=== PATIENT | female | born 1965 | race Caucasian/White ===

== ENCOUNTER 2017-03-05 18:57 | Emergency (ER) | payer MEDICAID ==
[2017-03-05 19:02] VITALS: TEMP 98.2; O2SAT 97
[2017-03-05] MEDS ORDERED: LORazepam 1 MG TAB PO ONE (19:26)
[2017-03-05] MEDS ORDERED: CHLORDIAZEPOXIDE 25MG PREPK#6 BTL TAKEHOME ONE (19:29)
--- NOTE | 2017-03-05 19:29 | EDPHY ---
H & P Stated Complaint: sent from [facility] to detox Time Seen by Provider: 03/05/17 19:20 HPI/ROS: CHIEF COMPLAINT: Sent to ED for Librium from [facility] HISTORY OF PRESENT ILLNESS: The patient is sent to the emergency department for Librium from the [facility]. She has a history of alcoholism and recently relapsed. She presents today with symptoms of mild alcohol withdrawal with slight restlessness nausea and mild tremor. The patient denies any suicidal or homicidal ideation. The patient denies vomiting or hematemesis. The patient has no acute medical complaints. REVIEW OF SYSTEMS: A comprehensive 10 point review of systems is otherwise negative aside from elements mentioned in the history of present illness. Source: Patient Exam Limitations: No limitations - Personal History LMP (Females 10-55): 1-7 Days Ago Current Tetanus/Diphtheria Vaccine: Yes Tetanus Vaccine Date: 2011 - Medical/Surgical History Hx Asthma: No Hx Chronic Respiratory Disease: No Hx Diabetes: No Hx Cardiac Disease: No Hx Renal Disease: No Hx Cirrhosis: No Hx Alcoholism: Yes Hx HIV/AIDS: No Hx Splenectomy or Spleen Trauma: No Other PMH: spinal stenosis, bulging discs, arthritis, alcoholic-15yrs - Social History Smoking Status: Current every day smoker - Physical Exam Exam: General Appearance: Alert, no distress Eyes: Pupils equal and round no pallor or injection ENT, Mouth: Mucous membranes moist Respiratory: There are no retractions, lungs are clear to auscultation Cardiovascular: Regular rate and rhythm Gastrointestinal: Abdomen is soft and nontender, no masses, bowel sounds normal Neurological: Alert and oriented x4, 5/5 strength noted all 4 extremity, slight resting tremor Skin: Warm and dry, no rashes Musculoskeletal: Neck is supple nontender Extremities: symmetrical, full range of motion Constitutional: Initial Vital Signs Temperature (C) 36.8 C 03/05/17 18:58 Heart Rate 113 H 03/05/17 18:58 Respiratory Rate 18 03/05/17 18:58 Blood Pressure 138/87 H 03/05/17 18:58 O2 Sat (%) 97 03/05/17 18:58 Allergies/Adverse Reactions: No Known Allergies Allergy (Verified 11/04/15 20:03) Home Medications: Medication Instructions Recorded Sertraline HCl 150 DAILY 11/15/15 Wellbutrin 150mg SR (*) 150 DAILY 03/05/17 Medical Decision Making ED Course/Re-evaluation: The patient presents to the emergency department with symptoms of mild alcohol withdrawal. She was given 1 mg dose of oral Ativan. She is otherwise well- appearing. The [facility] with [facility] prep[facility] for Librium. The patient has no evidence of moderate or severe alcohol withdrawal. She is appropriate for outpatient management at the [facility] detox facility. Differential Diagnosis: Differential diagnosis considered includes alcohol withdrawal, dehydration, metabolic abnormality, alcohol withdrawal seizure Departure - Departure Disposition: Home, Routine, Self-Care Clinical Impression: Alcohol withdrawal Qualifiers: Complication of substance-induced condition: uncomplicated Qualified Code(s): F10.230 - Alcohol dependence with withdrawal, uncomplicated Condition: Good Instructions: Alcohol Withdrawal (ED) Additional Instructions: 1. Please follow up with the [facility]. You have been given a prepack for Librium. 2. Please return to the ED for severe pain, intractable vomiting or other concerns. Referrals: Nieves Bardales NP [Primary Care Provider] - As per Instructions
[2017-03-05 19:57] VITALS: BP 135/95; PULSE 90; RESP 16
== END 2017-03-05 21:35 | disposition home or self-care (01) ==
DX: F10.230 Alcohol dependence with withdrawal, uncomplicated (principal); F17.200 Nicotine dependence, unspecified, uncomplicated

== ENCOUNTER 2017-03-10 17:28 | Emergency (ER) | payer MEDICAID ==
[2017-03-10 17:36] VITALS: TEMP 98.1; O2SAT 96
[2017-03-10] MEDS ORDERED: LORazepam 1 MG TAB PO ONE ×2 (18:10→19:50)
[2017-03-10] MEDS ORDERED: NS 1,000 ML IV ONE (18:10)
--- NOTE | 2017-03-10 18:13 | EDPHY ---
H & P Stated Complaint: detox/etoh last drink at noon/tremors/sob/ n/v HPI/ROS: CHIEF COMPLAINT: Alcohol detox request HISTORY OF PRESENT ILLNESS: Patient admits to being a binge alcoholic. She says she drinks for 2-3 days at a time every 3-4 weeks. Most recently, she has been drinking vodka for the past 3 days. She has had between 1.75 in 2 L. Per last intake of alcohol was 3.5 hours ago. She now is asking for detox. She wants to go to the [facility] for Librium detox. She has done this in the past but did not complete most recently. She says she has felt her heart racing but she has no chest pain. She has no shortness of breath. No fever, chills, nausea vomiting. She has no thoughts of self-harm and is here on her own free will asking for help. No other associated complaints or modifying factors. REVIEW OF SYSTEMS: Ten systems reviewed and are negative unless otherwise noted in the HPI PERTINENT MEDICAL HISTORY: Alcoholic, depression and anxiety EXAMINATION General Appearance: Alert, no distress. Resting comfortably. Head: normocephalic, atraumatic Eyes: Pupils equal and round, no conjunctival pallor or injection. EOMs intact. ENT, Mouth: Mucous membranes moist. Uvula midline. Neck: Normal inspection, supple, non-tender Respiratory: Lungs are clear to auscultation. No wheezing, rhonchi or crackles. Cardiovascular: Tachycardic at 112 beats per minute. Regular rhythm. No murmur. Pulses intact distally. Gastrointestinal: Abdomen is soft and nontender Back: non-tender, no bony abnormalities Neurological: GCS 15. A&O, nonfocal, normal gait. Strength symmetric in all 4 limbs. No dysmetria. No pronator drift. Normal mental status Skin: Warm and dry, no rash Extremities: Nontender, no pedal edema Psychiatric: Mood and affect normal DIFFERENTIAL DIAGNOSES: Including but not limited to chronic alcoholism, alcohol abuse, alcohol dependency, alcohol withdrawal, detox MDM: 6:10 p.m. Patient is here requesting alcohol detox. She has had 1.75 L over the past 3 days. Her last intake of alcohol was 3-4 hours ago. She says that she binges once a month for 2-3 days at a time. This is typical for her. She has no suicidal ideation. She is awake and alert in no acute distress. She is afebrile and not hypertensive. She does not exhibit any signs of delirium tremens, nor do her vital signs suggest that. Provide IV fluid resuscitation, p.o. Ativan and provide Librium taper for her to take at the [facility]. She is comfortable with this plan. She will be discharged and taken to the [facility] by cab. SUPERVISION: This patient was independently evaluated without direct examination by the attending physician. Case was discussed with attending physician. Source: Patient, Old records Exam Limitations: No limitations - Personal History LMP (Females 10-55): 15-21 Days Ago Current Tetanus/Diphtheria Vaccine: Yes Tetanus Vaccine Date: 2011 - Medical/Surgical History Hx Asthma: No Hx Chronic Respiratory Disease: No Hx Diabetes: No Hx Cardiac Disease: No Hx Renal Disease: No Hx Cirrhosis: No Hx Alcoholism: Yes Hx HIV/AIDS: No Hx Splenectomy or Spleen Trauma: No Other PMH: spinal stenosis, bulging discs, arthritis, alcoholic-15yrs - Social History Smoking Status: Former smoker Constitutional: Initial Vital Signs Temperature (C) 98.1 F 03/10/17 17:33 Heart Rate 118 H 03/10/17 17:33 Respiratory Rate 20 03/10/17 17:33 Blood Pressure 115/75 03/10/17 17:33 O2 Sat (%) 96 03/10/17 17:33 O2 Delivery Mode Room Air Allergies/Adverse Reactions: No Known Allergies Allergy (Verified 03/10/17 17:32) Home Medications: Medication Instructions Recorded Sertraline HCl 150 DAILY 11/15/15 Wellbutrin 150mg SR (*) 150 DAILY 03/05/17 Departure - Departure Disposition: Home, Routine, Self-Care Clinical Impression: Alcohol dependence Qualifiers: Substance use status: uncomplicated Qualified Code(s): F10.20 - Alcohol dependence, uncomplicated Condition: Good Instructions: Chlordiazepoxide (By mouth), Alcohol Intoxication (ED), Abuse of Alcohol (ED), Alcohol Withdrawal (ED) Additional Instructions: Librium taper as instructed per [facility] protocol. Return to ER for any changes in symptoms or if he stopped taking the medication or start drinking alcohol. Do not take the medication with a alcohol or drink any alcohol 48 hours after taking the Librium. Referrals: [facility] [Other] - As per Instructions
[2017-03-10] MEDS ORDERED: CHLORDIAZEPOXIDE 25MG PREPK#6 BTL TAKEHOME ONE (18:15)
[2017-03-10] MEDS ORDERED: LORazepam 1 MG TAB ONE (19:52)
[2017-03-10 19:58] VITALS: BP 139/89; PULSE 89; RESP 18
== END 2017-03-10 19:57 | disposition home or self-care (01) ==
DX: F10.20 Alcohol dependence, uncomplicated (principal); Z87.891 Personal history of nicotine dependence

== ENCOUNTER 2018-04-01 20:14 | Emergency (ER) | payer MEDICAID ==
[2018-04-01 20:38] LABS: PLATELET COUNT 284 10^3/uL (150-400)
--- NOTE | 2018-04-01 23:57 | EDPHY ---
H & P Smoking Status: Former smoker Time Seen by Provider: 04/01/18 20:23 HPI/ROS: CHIEF COMPLAINT: M1 hold HISTORY OF PRESENT ILLNESS: 53-year-old female presents to the emergency department with [facility] Department on M1 hold. The patient made suicidal statements to her daughter. The patient admits to drinking alcohol this evening. She was recently in [facility] after a DUI. She lost her in January of 2018. She states that she does not feel suicidal now. She denies pain in her chest or difficulty breathing. Denies abdominal pain. Denies homicidal ideation. Denies auditory visual hallucinations. Denies any reported trauma. REVIEW OF SYSTEMS: Constitutional: No fever, no chills. Eyes: No double or blurry vision. ENT: No sore throat. Respiratory: No cough, no shortness of breath. Cardiac: No chest pain. Gastrointestinal: No abdominal pain, vomiting or diarrhea. Genitourinary: No dysuria. Musculoskeletal: No neck or back pain. Skin: No rashes. Neurological: No headache. (Lucinda Lynn) Past Medical/Surgical History: Depression (Lucinda Lynn) Social History: (Lucinda Lynn) Physical Exam: General Appearance: Alert, no distress. Smells strongly of alcohol. No visible signs of trauma to her head. Eyes: Pupils equal and round. Extraocular motions are all intact. ENT: Mouth: Mucous membranes moist. Respiratory: No wheezing, rhonchi, or rales, lungs are clear to auscultation. Cardiovascular: Regular rate and rhythm. Gastrointestinal: Abdomen is soft and nontender, no masses, no rebound or guarding, bowel sounds normal. Neurological: Alert and oriented x 3, cranial nerves II through XII grossly intact Skin: Warm and dry, no rashes. Musculoskeletal: Nontender to palpate along the cervical, thoracic or lumbar spine. Neck is supple. Extremities: Full range of motion and no peripheral edema. Psychiatric: Patient is oriented X 3, there is no agitation. (Lucinda Lynn) Constitutional: Initial Vital Signs Temperature (C) 37.1 C 04/01/18 20:33 Heart Rate 104 H 04/01/18 20:33 Respiratory Rate 17 04/01/18 20:33 Blood Pressure 130/91 H 04/01/18 20:33 O2 Sat (%) 95 04/01/18 20:33 O2 Delivery Mode Room Air Allergies/Adverse Reactions: No Known Allergies Allergy (Verified 03/10/17 17:32) Home Medications: Medication Instructions Recorded Sertraline HCl 150 DAILY 11/15/15 Wellbutrin 150mg SR (*) 150 DAILY 03/05/17 Medical Decision Making ED Course/Re-evaluation: 53-year-old female presents to the emergency department on M1 hold. She is feeling depressed. She made suicidal statements to her daughter. Her daughter called the police and she was transported to the emergency department for evaluation. The patient is acutely intoxicated with alcohol. When she is clinically sober, she will be evaluated by mental health. (Lucinda Lynn) I took over care of this patient at 7:00 a.m.. This patient is on an M1 hold for alcohol intoxication and suicidal thoughts. She is awaiting behavioral health evaluation. 2:45 p.m., there have been no issues during my shift. The patient has been seen and evaluated by [facility]. [facility] is currently discussing the patient's case with the on-call psychiatrist. Care will be turned over to Dr. Jhony Thompson at 3:00 p.m.. (Kvng Saldana) Differential Diagnosis: Depression including functional and major depression, situational depression, medication side effect, drugs and alcohol abuse. (Lucinda Lynn) Other Provider: 0100 care assumed by me from ASIM Lynn pending sober mental health evaluation. 0700 patient has been sleeping overnight. Patient signed out to Dr. Saldana pending sober evaluation. I have no issues during my care this patient overnight. (Gilbert Rogers) I assumed care of the patient at 3:00 p.m. Pending psychiatric disposition. Updated 5:11 p.m.: The patient has been accepted for inpatient psychiatric hospitalization at [facility] by Dr. Banegas. I have filled out the EMTALA transfer form. (Salvador Thompson) Care Turn Over: Care will be turned over to Dr. Elia Rogers for disposition and plan. (Lucinda Lynn) - Data Points Laboratory Results: Laboratory Results 04/01/18 20:30 04/01/18 20:30 Medications Given: Discontinued Medications Lorazepam (Ativan) 1 mg PO EDNOW ONE Stop: 04/02/18 16:35 Last Admin: 04/02/18 16:41 Dose: 1 mg Departure - Departure Disposition: Other Psych, Not [facility] Clinical Impression: Depression, Suicidal ideation Alcohol intoxication Qualifiers: Complication of substance-induced condition: uncomplicated Qualified Code(s): F10.920 - Alcohol use, unspecified with intoxication, uncomplicated Condition: Fair Referrals: Patient,NotPresent [Unknown] - As per Instructions
[2018-04-02] MEDS ORDERED: LORazepam 1 MG TAB PO ONE (16:34)
[2018-04-02 20:03] VITALS: BP 144/80
== END 2018-04-02 19:53 ==
LOC: EEVIPCON 20:14
DX: R45.851 Suicidal ideations (principal); F32.9 Major depressive disorder, single episode, unspecified; Z87.891 Personal history of nicotine dependence
CPT/HCPCS: 80305; G0480

== ENCOUNTER 2018-04-13 00:46 | Emergency (ER) | payer MEDICAID ==
--- NOTE | 2018-04-13 00:55 | EDPHY ---
H & P Stated Complaint: Alcohol intoxication, medical clearance Time Seen by Provider: 04/13/18 00:56 HPI/ROS: HPI: This is a 53-year-old female who presents with Chief Complaint: Medical clearance, alcohol intoxication Location: psych Quality: Alcohol intoxication Duration: Today Signs and Symptoms: no fever, no nausea, no vomiting, no hematemesis, no blood in stool, no abdominal bloating, no diarrhea, no back pain, no urinary symptoms , no vaginal bleeding/discharge, no indigestion, no chest pain, no shortness of breath Timing: Chronic Severity: Moderate Context: Patient has a history of binge alcohol drinking. She reports that she drinks for 2-3 days a time every 3-4 weeks for the last 15 years. She most recently has been drinking vodka UA between 1.75 and 2 L. She is currently in the emergency room accompanied by police as she is under arrest. She told him that she had not eaten any food in the last 3 days. Further questioning patient reports that when she drinks and binges that she does not have any appetite. Patient denies any actual nausea, vomiting, abdominal pain, hematemesis, blood in stool. She has no history of alcohol withdrawal seizures. She has no thoughts of self-harm or harming others. Patient is very upset as she does not want to go to long-term. Modifying Factors: None Comment: ROS: see HPI Constitutional: No fever, no chills, no weight loss Eyes: No blurred vision Respiratory: No shortness of breath, no cough Cardiovascular: No chest pain, no palpitations Gastrointestinal: No nausea, no vomiting, no diarrhea, no hematemesis, no blood in stool Genitourinary: No dysuria, no blood in urine Extremities: No myalgias, no edema Neurologic: No weakness, no numbness Skin: No rashes, no petechiae Hematologic: No bruising, no bleeding MEDICAL/SURGICAL/SOCIAL HISTORY: Medical history: spinal stenosis, bulging discs, arthritis, alcoholic-15yrs Surgical history: Denies Social history: here Family history noncontributory. CONSTITUTIONAL: awake and alert, no obvious distress HEENT: Atraumatic and normocephalic, PERRL, EOMI. Nares patent; no rhinorrhea; no nasal mucosal edema. Tympanic membranes clear. Oropharynx clear, no exudate and moist pink mucosa. Airway patent. No lymphadenopathy. No meningismus. Cardiovascular: Normal S1/S2, regular rate, regular rhythm, without murmur rub or gallop. PULMONARY/CHEST: Symmetrical and nontender. Clear to auscultation bilaterally. Good air movement. No accessory muscle usage. ABDOMEN: Soft, nondistended, nontender, no rebound, no guarding, no peritoneal signs, no masses or organomegaly. No CVAT. EXTREMITIES: 2/2 pulses, strength 5/5, no deformities, no clubbing, no cyanosis or edema. NEUROLOGICAL: no focal neuro deficits. GCS 15. SKIN: Warm and dry, no erythema. no rash. Good capillary refill. Source: Police, Old records Exam Limitations: Clinical condition - Personal History Tetanus Vaccine Date: 2011 - Medical/Surgical History Hx Asthma: No Hx Chronic Respiratory Disease: No Hx Diabetes: No Hx Cardiac Disease: No Hx Renal Disease: No Hx Cirrhosis: No Hx Alcoholism: Yes Hx HIV/AIDS: No Hx Splenectomy or Spleen Trauma: No Other PMH: spinal stenosis, bulging discs, arthritis, alcoholic-15yrs - Social History Smoking Status: Former smoker Allergies/Adverse Reactions: No Known Allergies Allergy (Verified 04/13/18 00:51) Home Medications: Medication Instructions Recorded Sertraline HCl 150 DAILY 11/15/15 Wellbutrin 150mg SR (*) 150 DAILY 03/05/17 Medical Decision Making ED Course/Re-evaluation: Vital signs reviewed and stable upon arrival. Abdomen soft and nontender. Doubt surgical process. Does not meet M1 hold or Detainer criteria. Patient will be discharged to the long-term. This patient was seen under the supervision of my secondary supervising physician. I evaluated care for this patient independently. Discussed this patient with Dr. Espinal who did not see the patient. Differential Diagnosis: Differential diagnosis includes but is not limited to chronic alcoholism, alcohol bingeing, alcoholic gastritis, gastroenteritis, anorexia. Departure - Departure Disposition: Law Enforcement/Court/[facility] Clinical Impression: Alcohol intoxication Qualifiers: Complication of substance-induced condition: uncomplicated Qualified Code(s): F10.920 - Alcohol use, unspecified with intoxication, uncomplicated Condition: Good Instructions: Alcohol Withdrawal (ED), Alcohol Dependence (ED) Additional Instructions: Patient is Medically Cleared to be discharged to long-term. See [facility] for follow-up instructions and prescriptions. Referrals: [facility],. [Clinic] - Follow Up Only If Needed
[2018-04-13 01:01] VITALS: BP 123/74
== END 2018-04-13 01:01 ==
DX: F10.920 Alcohol use, unspecified with intoxication, uncomplicated (principal); Z87.891 Personal history of nicotine dependence

== ENCOUNTER 2018-05-03 12:15 | Emergency (ER) | payer MEDICAID, OTHER ==
[2018-05-03 12:22] VITALS: BP 125/81
--- NOTE | 2018-05-03 12:50 | EDPHY ---
H & P Time Seen by Provider: 05/03/18 12:33 HPI/ROS: CHIEF COMPLAINT: [facility] hold HISTORY OF PRESENT ILLNESS: Patient is a alcoholic you binge drinks and has been going for 2 weeks on vodka. She was speaking on the phone to her sister today and her sister called EMS who went to the residence. The sister lives in the state of [place]. There was no report of suicidal ideation or overdose, the patient denies suicidal or homicidal ideation or hallucinations to me. She says she feels fine except for depression and feeling drunk. No injury or trauma. No recent illnesses. REVIEW OF SYSTEMS: Eye: no change in vision ENT: no sore throat Cardiac: no chest pain or syncope Pulmonary: no cough or SOB Abdomen: no vomiting, diarrhea, abdominal pain Musculoskeletal: Chronic back pain on tramadol, unchanged Skin: no rash Neuro: no headache Constitutional: no fever : no urinary symptoms A comprehensive 10 point review of systems is otherwise negative aside from elements mentioned in the history of present illness. PAST MEDICAL HISTORY: Spinal stenosis with chronic back pain, alcoholism and depression. Patient tells me she is currently not taking any medications, specifically not sertraline or Wellbutrin. Social history: Vodka today General Appearance: Alert and conversant, cooperative. Eyes: No scleral icterus. ENT, Mouth: Normal mucous membranes. Respiratory: Normal respiratory effort, breath sounds equal, lungs are clear to auscultation. Cardiovascular: Regular rate and rhythm. Gastrointestinal: Abdomen is soft and non tender. Neurological: Alert, face symmetric, normal motor and sensory in extremities. Patient is ambulatory without ataxia. Speech is fluent. Skin: Warm and dry, no rashes. Musculoskeletal: No extremity deformity or tenderness and no spinal tenderness. Psychiatric: Not agitated. Emergency Department course/MDM: Patient is medically clear to go to detox. She does not appear to meet criteria for 72 hr mental health hold. Does not appear to have acute medical or surgical emergent condition at this time. Smoking Status: Former smoker Constitutional: Initial Vital Signs Temperature (C) 36.8 C 05/03/18 12:19 Heart Rate 102 H 05/03/18 12:19 Respiratory Rate 16 05/03/18 12:19 Blood Pressure 125/81 H 05/03/18 12:19 O2 Sat (%) 91 L 05/03/18 12:19 O2 Delivery Mode Room Air Allergies/Adverse Reactions: No Known Allergies Allergy (Verified 04/13/18 00:51) Home Medications: Medication Instructions Recorded Sertraline HCl 150 DAILY 11/15/15 Wellbutrin 150mg SR (*) 150 DAILY 03/05/17 Medical Decision Making - Data Points Medications Given: Discontinued Medications Chlordiazepoxide (Librium 25 Mg Prepack#6) 1 btl TAKEHOME EDNOW ONE Stop: 05/03/18 12:56 Last Admin: 05/03/18 12:56 Dose: 1 btl Departure - Departure Disposition: Home, Routine, Self-Care Clinical Impression: Alcohol intoxication Qualifiers: Complication of substance-induced condition: uncomplicated Qualified Code(s): F10.920 - Alcohol use, unspecified with intoxication, uncomplicated Condition: Good Instructions: Chlordiazepoxide/Clidinium (By mouth), Alcohol Intoxication (ED) Additional Instructions: Pt is medically cleared for Detox/ [facility] Referrals: [facility],. [Clinic] - As per Instructions
[2018-05-03] MEDS ORDERED: CHLORDIAZEPOXIDE 25MG PREPK#6 BTL TAKEHOME ONE ×2 (12:55)
== END 2018-05-03 13:01 | disposition home or self-care (01) ==
LOC: EDUNIT#
DX: F10.920 Alcohol use, unspecified with intoxication, uncomplicated (principal); Z87.891 Personal history of nicotine dependence

== ENCOUNTER 2018-07-10 11:25 | Emergency (ER) | payer MEDICAID, OTHER ==
--- NOTE | 2018-07-10 11:49 | EDPHY ---
General Time Seen by Provider: 07/10/18 11:30 Narrative: CHIEF COMPLAINT: "I am drunk" HISTORY OF PRESENT ILLNESS: Patient presents by EMS with reports of acute alcohol intoxication on an arc hold by [facility]. She complains to me that she is intoxicated. She says she had several drinks overnight. She has no complaints of any kind otherwise. She has no headache, chest pain or abdominal pain. She is ambulating with no difficulty. [place] [employer] states that they attempted to take her to the [facility] but they have declined her for further care. No other associated complaints or modifying factors REVIEW OF SYSTEMS: 10 systems were reviewed and negative with the exception of the elements mentioned in the history of present illness. PCP: None SPECIALISTS: None PAST MEDICAL HISTORY: Alcohol dependency PAST SURGICAL HISTORY: No recent surgeries SOCIAL HISTORY: Daily ingestion of alcohol. Will not provide amount FAMILY HISTORY: Noncontributory EXAMINATION: General Appearance: Alert, no distress. Conversing in full sentences without slurred speech. Ambulatory without difficulty Head: normocephalic, atraumatic Eyes: Pupils equal and round, no conjunctival pallor or injection ENT, Mouth: Mucous membranes moist Neck: Normal inspection, supple, non-tender Respiratory: Lungs are clear to auscultation Cardiovascular: Regular rate and rhythm. No murmur Gastrointestinal: Abdomen is soft and nontender Back: non-tender, no bony abnormalities Neurological: GCS 15. A&O, nonfocal, normal steady gait. No pronator drift. Strength is symmetric in all 4 limbs Skin: Warm and dry, no rash Extremities: Nontender, no pedal edema Psychiatric: Mood and affect normal DIFFERENTIAL DIAGNOSES: Including but not limited to acute alcohol intoxication, alcohol dependency MDM: 11:40 a.m. Acute alcohol intoxication on a [facility] arc hold. The patient is reportedly not welcome at the [facility] any longer. She is ambulatory without difficulty but does appear to be clinically intoxicated. As she was not welcome at the [facility], I requested that the arc hold be lifted and I placed her on a detainer keep her safe emergency department. She will contact her daughter to come pick her up. Although she does appear to be intoxicated, she has normal speech without slurring. She is ambulatory without difficulty. We will let her rest with her family and her home. 12:30 p.m. Patient is still sleeping, resting comfortably. 2:00 p.m. Patient is still sleeping. She has been unable to obtain a ride. We will ambulate her and she has been here for over 2.5 hr. 2:40 p.m. Patient has ambulated in the emergency department after resting for several hours. She is conversing in full sentences and I do feel she is clinically sober. She has no seizure-like activity. She has no slurred speech, difficulty ambulating. Do feel she is stable for discharge home and she will follow up with her primary care physician accordingly. SUPERVISION: This patient was independently evaluated without direct involvement of or examination by the attending physician. CONSULTATION: None - History Smoking Status: Former smoker - Objective Vital Signs: Initial Vital Signs Temperature (C) 98.2 F 07/10/18 11:40 Heart Rate 92 07/10/18 11:40 Respiratory Rate 16 07/10/18 11:40 Blood Pressure 125/79 H 07/10/18 11:40 O2 Sat (%) 99 07/10/18 11:40 O2 Delivery Mode Room Air Allergies/Adverse Reactions: No Known Allergies Allergy (Verified 04/13/18 00:51) Home Medications: Medication Instructions Recorded NK [No Known Home Meds] 05/21/18 Departure - Departure Disposition: Home, Routine, Self-Care Clinical Impression: Alcohol dependence Qualifiers: Substance use status: uncomplicated Qualified Code(s): F10.20 - Alcohol dependence, uncomplicated Alcohol intoxication Qualifiers: Complication of substance-induced condition: uncomplicated Qualified Code(s): F10.920 - Alcohol use, unspecified with intoxication, uncomplicated Condition: Good Instructions: Alcohol Intoxication (ED), Abuse of Alcohol (ED) Additional Instructions: 1. Contact primary care physician to discuss alcohol cessation in a supervised manner Referrals: [facility],. [Clinic] - As per Instructions
[2018-07-10 14:20] VITALS: BP 102/91
== END 2018-07-10 14:19 | disposition home or self-care (01) ==
DX: F10.920 Alcohol use, unspecified with intoxication, uncomplicated (principal); Z87.891 Personal history of nicotine dependence